=== PATIENT | male | born 1965 | race Caucasian/White ===

== ENCOUNTER 2020-11-12 15:09 | Emergency (ER) | payer SELFPAY ==
[~2020-11-12] VITALS: Ht 177.8 cm; Wt 86.2 kg
--- NOTE | 2020-11-12 15:40 | NUR ---
pt rec;d to er via ems was on the street did meth AWAITING EVALUATION BY ER PROVIDER.
[2020-11-12] MEDS ORDERED: TDAP [DIPH/PERTUSSIS/TET] 0.5 ML VIAL IM ONE ×2 (15:43→16:00)
[2020-11-12] MEDS ORDERED: LIDOCAINE 1%-EPI 1:100,000 20 ML VIAL ONE (15:46)
[2020-11-12] MEDS ORDERED: LIDOCAINE 1% INJ 50 ML MDV IJ ONE (15:55)
[2020-11-12] MEDS ORDERED: LIDOCAINE HCL/PF 1% 30 ML VIAL TP ONE (16:00)
--- NOTE | 2020-11-12 16:30 | NUR ---
pt sleeping cont to monitor vss
--- NOTE | 2020-11-12 17:00 | NUR ---
pt awake eatting dinner watching tv oriented x3.
[2020-11-12] MEDS ORDERED: NALO4SPR NS (18:49)
--- NOTE | 2020-11-12 20:11 | NUR ---
Patient discharged to home in stable condition. Written and verbal after care instructions given. Patient verbalizes understanding of instruction. IV removed. Catheter intact and site benign. Pressure and 4x4 applied to site. No bleeding noted.
[2020-11-12 20:12] VITALS: BP 132/60
== END 2020-11-12 20:12 | disposition home or self-care (01) ==
LOC: EDBD 15:09 → ER 15:09 → EDSEX 15:09 → ER 20:12
DX: S01.111A Laceration without foreign body of right eyelid and periocular area, initial encounter (principal); T40.2X1A Poisoning by other opioids, accidental (unintentional), initial encounter; Z59.0 Homelessness; Z79.899 Other long term (current) drug therapy; X58.XXXA Exposure to other specified factors, initial encounter; Y93.89 Activity, other specified; Y92.89 Other specified places as the place of occurrence of the external cause; Y99.8 Other external cause status
CPT/HCPCS: 12011; 70450; 71045; 90471; 90715; 99285; A6403; J3490 ×2